=== PATIENT | female | born 1990 | race Caucasian/White ===

== ENCOUNTER 2018-11-04 03:05 | Emergency (ER) | payer SELFPAY ==
[~2018-11-04] VITALS: Ht 167.6 cm; Wt 54.4 kg
[2018-11-04 03:10] VITALS: BP 151/97
[2018-11-04] MEDS ORDERED: ONDA4TAB12 PO (03:26)
[2018-11-04] MEDS ORDERED: BUTA1TAB23 PO (03:26)
--- NOTE | 2018-11-04 03:26 | PHYS DOC ---
Past Medical History Past Medical History: Migraines, Pancreatitis Additional Past Medical Histor: "Low functioning liver", Hypoglycemia Past Surgical History: Cholecystectomy, Gastric Bypass, Tonsillectomy Additional Information: Nonsmoker Alcohol Use: None Drug Use: None Adult General Chief Complaint Chief Complaint: HEADACHE HPI HPI 28-year-old female presents with report of acute migraine headache x 3 hours. Patient reports started today. Reports took 1000 mg of Tylenol prior to arrival without improvement. Patient reports history of migraine headaches. Reports some associated nausea without vomiting. Reports photosensitivity. Denies neck pain. Denies fever or chills. Denies trauma. Reports is "unsure" if she might be . Review of Systems Review of Systems Constitutional: Denies fever or chills Eyes: Denies redness; reports photosensitivity HENT: Denies nasal congestion or sore throat Respiratory: Denies cough or shortness of breath Cardiovascular: Denies chest pain or palpitations GI: Denies abdominal pain or vomiting; reports nausea : Denies dysuria or hematuria Musculoskeletal: Denies back pain or joint pain Integument: Denies rash or skin lesions Neurologic: Reports headache; denies focal weakness or sensory changes Complete systems were reviewed and found to be within normal limits, except as documented in this note. Current Medications Current Medications Current Medications Medications (Trade) Dose Ordered Sig/Noah Start Time Stop Time Status Last Admin Dose Admin Dexamethasone (Decadron) 10 mg 1X ONCE 11/04/18 04:00 11/04/18 04:01 DC 11/04/18 03:46 10 MG Ketorolac Tromethamine (Toradol 30mg Vial) 30 mg 1X ONCE 11/04/18 04:00 11/04/18 03:37 DC Ondansetron HCl (Zofran Odt) 4 mg 1X ONCE 11/04/18 04:00 11/04/18 04:01 DC 11/04/18 03:36 4 MG Orphenadrine Citrate (Norflex) 60 mg 1X ONCE 11/04/18 04:00 11/04/18 04:01 DC 11/04/18 03:46 60 MG Allergies Allergies Allergies Coded Allergies Type Severity Reaction Last Updated Verified NSAIDS (Non-Steroidal Anti-Inflamma Adverse Reaction Intermediate abd pain 11/04/18 Yes Physical Exam Physical Exam Constitutional: Well developed, well nourished, uncomfortable, non-toxic appearance HENT: Normocephalic, atraumatic, oropharynx moist Eyes: PERRL, EOMI, photosensitivity, conjunctiva normal, no discharge Neck: Normal range of motion, no tenderness, supple, no meningeal signs Cardiovascular: Heart rate normal, regular rhythm Lungs & Thorax: Bilateral breath sounds clear to auscultation, no wheezing Abdomen: Soft, no tenderness Skin: Warm, dry, no erythema, no rash Extremities: No tenderness, ROM intact, no edema Neurologic: Alert and oriented X 3, normal motor function, normal sensory function, no focal deficits noted Psychologic: Affect flat, judgement normal Current Patient Data Vital Signs Vital Signs Date Time Temp Pulse Resp B/P (MAP) Pulse Ox O2 Delivery O2 Flow Rate FiO2 11/04/18 03:10 97.4 71 15 151/97 (115) 99 Room Air 97.4 Lab Values Laboratory Tests Test 11/04/18 03:15 POC Urine HCG, Qualitative Hcg negative (Negative) EKG EKG [] Radiology/Procedures Radiology/Procedures [] Course & Med Decision Making Course & Med Decision Making Neurologically intact patient presents with acute on chronic migraine headache similar to prior. Patient had taken 1000 mg of Tylenol prior to arrival. No history of trauma. No meningeal signs noted. Afebrile. Symptomatic treatment provided with oral steroid, ODT Zofran, and IM Norflex. Patient instructed to go home in dark room where it is quiet and to sleep. Patient stable for discharge with outpatient follow-up with PCP/neurologist. Neurology referral provided. Discussed findings and plan with patient, who acknowledges understanding and agreement. Dragon Disclaimer Dragon Disclaimer This electronic medical record was generated, in whole or in part, using a voice recognition dictation system. Departure Departure Impression: Primary Impression: Headache Disposition: 01 HOME, SELF-CARE Condition: STABLE Referrals: DIAMOND BRICENO MD Patient Instructions: Headache, FAQs, Recurrent Migraine Headache, [id number] Scripts Butalb/Acetaminophen/Caffeine ([id number] 50-325-40) 1 Each Tablet 1 EACH PO Q6HRS PRN for HEADACHE, #14 TAB Prov: SEKOU IRIZARRY DO 11/04/18 Ondansetron (ONDANSETRON ODT) 4 Mg Tab.rapdis 1 TAB PO PRN Q6-8HRS PRN for NAUSEA, #16 TAB Prov: SEKOU IRIZARRY DO 11/04/18 Problem Qualifiers Primary Impression: Headache Headache type: unspecified Headache chronicity pattern: acute headache Intractability: not intractable Qualified Codes: R51 - Headache SEKOU IRIZARRY DO Nov 04, 2018 03:26
[2018-11-04] MEDS ORDERED: DEXAMETHASONE 4 MG TABLET PO ONE (04:00)
[2018-11-04] MEDS ORDERED: ORPHENADRINE CITRATE 60 MG/2 ML VIAL. IM ONE (04:00)
[2018-11-04] MEDS ORDERED: KETOROLAC 30 MG/ML VIAL. IM ONE (04:00)
[2018-11-04] MEDS ORDERED: ONDANSETRON ODT 4 MG TAB.RAPDIS. PO ONE (04:00)
== END 2018-11-04 04:20 | disposition home or self-care (01) ==
LOC: ER 03:05
DX: G43.909 Migraine, unspecified, not intractable, without status migrainosus (principal); R11.0 Nausea; Z90.49 Acquired absence of other specified parts of digestive tract; Z90.89 Acquired absence of other organs; Z88.8 Allergy status to other drugs, medicaments and biological substances
CPT/HCPCS: 81025; 96372; 99283; J2360; J8540; Q0162